=== PATIENT | female | born 1980 | race Caucasian/White ===

== ENCOUNTER 2017-06-20 14:45 | Emergency (ER) | payer MEDICAID, OTHER | END 2017-06-20 18:07 | disposition home or self-care (01) | LOC: FTE 14:45 | DX: S63.601A Unspecified sprain of right thumb, initial encounter (principal); X58.XXXA Exposure to other specified factors, initial encounter; Y92.9 Unspecified place or not applicable | CPT/HCPCS: 73130; 73130-RT; 99283-25 ==